=== PATIENT | female | born 1975 | race Caucasian/White ===

== ENCOUNTER → 2022-03-01 | Day surgery (SDC) | payer OTHER ==
[~2022-03-01] VITALS: Ht 170.2 cm; Wt 68.0 kg
[~2022-03-01] MED LIST: ASCORBIC ACID500 MG PO; ASPIRIN EC81 MG PO; BIOTIN1 M1 PO; JASMIEL 3 MG-01 EACH PO; KRILL OIL500 MG PO; L-LYSINE500 M2 PO; PROBIOTIC1 EAC1 PO; VITAMIN D310 MCG PO
== END | disposition home or self-care (01) ==
LOC: FAS 01-02 07:30
DX: Z12.11 Encounter for screening for malignant neoplasm of colon (principal); K64.8 Other hemorrhoids; K62.89 Other specified diseases of anus and rectum; K63.89 Other specified diseases of intestine; Z88.1 Allergy status to other antibiotic agents; Z88.0 Allergy status to penicillin; Z79.82 Long term (current) use of aspirin; Z87.891 Personal history of nicotine dependence
CPT/HCPCS: J2250; J2704; J7120